=== PATIENT | female | born 2000 | race Caucasian/White ===

== ENCOUNTER → 2024-03-19 | Outpatient (CLI) | payer OTHER | LOC: M WUC 10:02 | PROVIDERS: ATTEND Physician Assistant | DX: S90.122A Contusion of left lesser toe(s) without damage to nail, initial encounter (principal); W18.30XA Fall on same level, unspecified, initial encounter; Y92.009 Unspecified place in unspecified non-institutional (private) residence as the place of occurrence of the external cause ==